=== PATIENT | male | born 1960 | race Caucasian/White ===

== ENCOUNTER 2018-03-07 16:09 | Inpatient (IN) | payer OTHER, SELFPAY ==
[2018-03-07 17:34] LABS: #Eosinphils 0.2 thou/uL (0.0-0.7); #Lymphocytes 1.4 thou/uL (1.20-3.40); #Monocytes 1.2 thou/uL (0.11-0.59); %Basophils 0.2 % (0.0-1.0); %Eosinophils 1.4 % (0.0-10.0); %Lymphocytes 11.5 % (21.0-51.0); %Monocytes 10.5 % (0.0-10.0); %Neutrophils 76.4 % (42.0-75.0); Hemoglobin 15.6 g/dL (14.0-18.0); Mean Corpuscular HGB CONC 36.2 g/dL (32.0-36.0); Platelet Count 308 thou/uL (130-400); RBC Distribution Width 11.2 % (11.5-14.5); Red Blood Cell (RBC) Count 4.73 mill/uL (4.70-6.10); White Blood Cell (WBC) Count 11.7 thou/uL (4.8-10.8)
[2018-03-07 17:57] LABS: ALT (SGPT) 15 U/L (8-55); AST (SGOT) 13 U/L (5-34); Albumin 4.3 g/dL (3.5-5.0); Alkaline Phosphatase 91 U/L (40-150); Anion Gap 18 mmol/L (10-20); BUN (Urea Nitrogen) 13 mg/dL (8.4-25.7); Bilirubin, Total 1.2 mg/dL (0.2-1.2); Calc. Creatinine Clearance 0 mL/min (70-130); Carbon Dioxide 23 mmol/L (22-29); Chloride 97 mmol/L (98-107); Estimated GFR-MDRD 85; Globulin 3.4 g/dL (2.4-3.5); Glucose 320 mg/dL (70-105); Potassium 4.2 mmol/L (3.5-5.1); Protein, Total 7.7 g/dL (6.0-8.3); Sodium 134 mmol/L (136-145)
--- NOTE | 2018-03-07 21:42 | RAD ---
RIGHT FOOT THREE VIEWS: INDICATIONS: History of right foot wound. COMPARISON: None. FINDINGS: There is mild metatarsus primus varus and hallux valgus deformity of the first ray. There is mild gr eat toe MTP osteoarthrosis. There are [place] calcifications seen within the soft tissues of the r ight foot. There is soft tissue gas involving the medial aspects of the great toe, at the level of t he great toe proximal phalanx. There is soft tissue swelling of the great toe. Lisfranc alignment i s preserved. Enthesopathic change is seen in the calcaneus. No radiopaque foreign body is evident. IMPRESSION: 1. Soft tissue gas and soft tissue swelling of the great toe, suspicious for infection or wound. No destructive osteolysis is seen to suggest radiographic evidence of osteomyelitis. 2. Mild great toe metacarpophalangeal osteoarthrosis. POS: KODY
[2018-03-08] MEDS ORDERED: Acetaminophen 325 MG TAB PO PRN ×2 (01:28→08:03)
[2018-03-08] MEDS ORDERED: Ondansetron HCl/PF 4 MG/2 ML Vial IVP PRN ×3 (01:28→11:47)
[2018-03-08] MEDS ORDERED: Ondansetron ODT 4 MG TAB SL PRN (01:28)
[2018-03-08 01:29] VITALS: BMI 27.6
[2018-03-08] MEDS ORDERED: Dextrose 5% in Water 1,000 ML IV PRN ×2 (05:14→08:03)
[2018-03-08] MEDS ORDERED: Insulin Regular 300 UNITS/3 ML VIAL SC PRN ×2 (05:14)
[2018-03-08] MEDS ORDERED: Dextrose 50% Abboject 50 ML SYRINGE IVP PRN (05:14)
[2018-03-08] MEDS: Piperacillin/Tazobactam 3.375 GM in Sodium Chloride 0.9% 100 ML IVPB SCH ×3 (05:52→17:08)
[2018-03-08] MEDS: Vancomycin HCl 1.5 GM in Sodium Chloride 0.9% 250 ML 300 ML IVPB SCH ×2 (05:52→17:55)
[2018-03-08] MEDS ORDERED: Loratadine 10 MG TAB PO PRN (08:03)
[2018-03-08] MEDS ORDERED: hydrALAZINE 20 MG/ML VIAL SLOW IVP PRN (08:03)
[2018-03-08] MEDS ORDERED: Mag-Al 1200 mg/1200 mg/30 ML UDCUP PO PRN (08:03)
[2018-03-08] MEDS ORDERED: Temazepam 15 MG CAP PO PRN (08:03)
[2018-03-08] MEDS ORDERED: Eucerin (Mineral Oil/Petrolatum,White) 30 gm Jar TOP PRN (08:03)
[2018-03-08] MEDS ORDERED: Artificial Tears 18 DROP/0.9 ML EA EYE PRN (08:03)
[2018-03-08] MEDS ORDERED: Milk Of Magnesia 30 ML UDCUP PO PRN (08:03)
[2018-03-08] MEDS ORDERED: Diabetic Tussin 200 MG/10 ML UDCUP PO PRN (08:03)
[2018-03-08] MEDS ORDERED: Sodium Chloride 0.65% Nasal 44 ML BOT EA NARE PRN (08:03)
[2018-03-08] MEDS ORDERED: Senokot 8.6 MG TAB PO PRN (08:03)
[2018-03-08] MEDS ORDERED: HYDROcodone/Acetaminophen 5/325 mg Tablet PO PRN ×2 (08:03)
[2018-03-08] MEDS ORDERED: Ondansetron ODT 4 MG TAB PO PRN (08:03)
[2018-03-08] MEDS ORDERED: Chloraseptic Spray 180 ml Bottle PO PRN (08:03)
[2018-03-08] MEDS ORDERED: Morphine 4 MG/ML VIAL IV PRN (08:30)
[2018-03-08] MEDS: Saccharomyces boulardii 250 MG CAP PO SCH (08:31)
[2018-03-08] MEDS: metFORMIN 500 MG TAB PO SCH ×2 (08:31→22:26)
--- NOTE | 2018-03-08 09:24 | CON ---
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 This developed in severe infection, presented to emergency room yesterday jen frances. Finally assigned to a room last night, admitted by Hospitalist Service, started on Zosyn and van comycin. Cultures obtained from the right foot have not been submitted. White count 11. He has sev ere infection in his right foot. X-rays obtained reveal there was gas in the soft tissues, severe ti ssue edema, but no osseous changes. Plan is for incision and drainage, probable amputation of the ri ght great toe, pending operative findings. Wound Care will be available to place a wound VAC. He dugan s a plantar wound that tracks to the dorsum skin at the base of the right great toe in the webspace b etween the great toe and second toe. ALLERGIES: None. TOBACCO: None. ALCOHOL: Socially, rarely. MEDICATIONS: Vancomycin, Zosyn in the hospital, metformin 500 b.i.d. at home. PAST SURGICAL HISTORY: Noncontributory. PAST MEDICAL HISTORY: Xte-[id number] diabetes mellitus. REVIEW OF SYSTEMS: [place] noncontributory. He is due for colonoscopy soon, has not had one scree veena in the past. FAMILY HISTORY: Noncontributory. REVIEW OF SYSTEMS: Noncontributory. PHYSICAL EXAMINATION: VITAL SIGNS: Height 6 foot, 203 pounds, 27 BMI, 98.4, 73, 137/74. HEENT: Unremarkable. LUNGS: Clear to auscultation. CARDIAC: Regular rate and rhythm without murmur or gallop. ABDOMEN: Soft, nontender. EXTREMITIES: Unremarkable. Palpable pulses. Right foot reveals severe cellulitis over the dorsum o f the right foot extending from the right great toe with severe cellulitis infection of the right gre at toe with plantar ulceration wound tracking to the dorsum of the skin in the webspace between the g reat toe and the second toe adjacent to the great toe. LABORATORY: White count 11, hemoglobin 15. Basic metabolic profile normal. Glucose 320. ASSESSMENT AND PLAN: Severe diabetic infection, right foot. PLAN: Incision and drainage, possible amputation of the right great toe as indicated. Cultures will be obtained. The patient understands the risks and benefits and consents. Postoperatively he will need a wound VAC with outpatient wound VAC care. Home health nursing versus outpatient [facility] Wound VAC care either locally or [facility] [place] versus [place].
[2018-03-08] MEDS ORDERED: PROPOFOL 200 MG/20 ML VIAL ONE (10:27)
[2018-03-08] MEDS ORDERED: Lidocaine 1% PF 5 ML VIAL ONE (10:27)
[2018-03-08] MEDS ORDERED: Ondansetron HCl/PF 4 MG/2 ML Vial ONE (10:27)
[2018-03-08] MEDS: Famotidine 20 MG TAB PO SCH ×2 (10:46→22:26)
[2018-03-08] MEDS ORDERED: Promethazine HCl 25 MG/ML VIAL IM PRN (11:47)
[2018-03-08] MEDS ORDERED: Promethazine HCl 25 MG/ML VIAL SLOW IVP PRN (11:47)
[2018-03-08] MEDS ORDERED: Ibuprofen 600 MG TAB PO PRN (12:20)
[2018-03-08] MEDS ORDERED: Acetaminophen 500 MG TAB PO PRN (12:20)
[2018-03-08] MEDS ORDERED: traMADol HCl 50 MG TAB PO PRN ×2 (12:20)
--- NOTE | 2018-03-08 12:43 | OP ---
DATE OF PROCEDURE: 03/08/2018 PREOPERATIVE DIAGNOSIS: Severe diabetic infection, right great toe. POSTOPERATIVE DIAGNOSIS: Severe diabetic infection, right great toe. PROCEDURES PERFORMED: Exploration of right great toe, opening the wound and sending cultures and sen sitivity of deep infection to the metatarsal phalangeal joint of the great toe with necrotic tissue r equiring ray amputation of the right great toe and metatarsal. Wound VAC application by Wound Care. SURGEON: Dr. Osman Szymanski ANESTHESIA: General LMA. FINDINGS: Excellent blood supply, cautery necessary for postoperative bleeding on digital arteries. PROCEDURE IN DETAIL: Patient was taken to the operating room where under general LMA anesthesia, rig ht lower extremity was prepared with ChloraPrep, draped in routine fashion. There was a deep infecti on in the webspace between the second and great toe, right foot. Incision carried down unroofing thi s and culture submitted. The infection extended down into the joint and into the surrounding soft ti ssues requiring amputation of the right great toe and metatarsal. This was performed sharply and amp utated with the bone cutters and resected proximally with rongeurs. Connective tissue was debrided. Wound was irrigated. Hemostasis gained with cautery. Wound care applied a wound VAC.
--- NOTE | 2018-03-08 13:48 | HP ---
PRIMARY CARE PHYSICIAN: Dr. Mayank Collins. REASON FOR ADMISSION: Right diabetic foot infection. HISTORY OF PRESENT ILLNESS: A 57-year-old male who was sent by primary care physician to emergency r oom for right foot infection. The patient reports that on last Wednesday, he noticed that he was having pain in his right great toe. Subsequently, it rapidly progressed to the right foot including dorsal aspect. He also noticed purulent drainage from the right great toe. The patient reports that he mi ght have stepped down to nail, but he was not sure. He was having chills last night as well as he st arted having fever. His erythema and swelling over right foot was rapidly progressing and that is wh y he made a followup appointment with primary care physician yesterday who sent him to emergency room and he was admitted to the hospital. The patient's pain is about 5/10 in intensity, which is getting worse with walking. There is no spec ific relieving factor. ALLERGIES: No known drug allergy. CURRENT HOME MEDICATION: Metformin 500 mg p.o. b.i.d. REVIEW OF SYSTEMS: The following complete review of systems was negative, unless otherwise mentioned in the HPI or below: Constitutional: Weight loss or gain, ability to conduct usual activities. Skin: Rash, itching. Eyes: Double vision, pain. ENT/Mouth: Nose bleeding, neck stiffness, pain, tenderness. Cardiovascular: Palpitations, dyspnea on exertion, orthopnea. Respiratory: Shortness of breath, wheezing, cough, hemoptysis, fever or night sweats. Gastrointestinal: Poor appetite, abdominal pain, heartburn, nausea, vomiting, constipation, or diarr hea. Genitourinary: Urgency, frequency, dysuria, nocturia. Musculoskeletal: Pain, swelling. Neurologic/Psychiatric: Anxiety, depression. Allergy/Immunologic: Skin rash, bleeding tendency. Please see my HPI for pertinent positive and negative. All other review of systems reviewed and nega tive except as mentioned in the HPI. PAST MEDICAL HISTORY: Diabetes type 2. PAST SURGICAL HISTORY: Reviewed and negative. PAST PSYCHIATRIC HISTORY: Reviewed and negative. SOCIAL HISTORY: Patient lives at home. 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 No history of tobacco, alcohol or illicit drug abuse. FAMILY HISTORY: No strong family history of coronary artery disease, stroke or cancer, diabetes to h is mother. EMERGENCY ROOM COURSE: Patient is given vancomycin and Zosyn. PHYSICAL EXAMINATION: VITAL SIGNS: On arrival, blood pressure 152/84, pulse 100, respiratory rate 20, temperature 98.0, sa turation 96% on room air, T-maximum 100.2 in the ER. Weight 94.8 kilograms. GENERAL: Patient is currently alert, awake, no obvious acute distress. HEAD: Normocephalic, atraumatic. EYES: Pupils round, reactive to light. Extraocular muscle intact. ENT: Oropharynx within normal limits. Moist mucous membranes. No oral lesion, no pharyngeal erythe ma, no exudate. NECK: Supple, no JVD, no thyromegaly, no carotid bruit, no jugular venous distention. LUNGS: Clear to auscultation without any rhonchi or rales. CARDIAC: S1, S2 regular. No murmur, no gallop, no rub. ABDOMEN: Soft, bowel sounds present, nontender, nondistended. No organomegaly, no mass, no suprapub ic tenderness. BACK: Unremarkable, no CVA tenderness. EXTREMITIES: Upper extremity passive movements of all joints are normal. Lower extremity, right gre at toe is swollen, erythematous, and purulent drainage noted from the bottom. The patient also has d orsal aspect of erythema and tenderness over right foot. Left foot is within normal limit. SKIN: No skin rash other than cellulitis picture on the right foot. NEUROLOGIC: Nonfocal examination. Speech normal. IMAGING DATA AND SIGNIFICANT LABORATORY DATA: X-ray of the foot showing soft tissue gas and soft tis sandra swelling of the great toe, metacarpophalangeal osteoarthrosis. CBC: WBC 11.7, hemoglobin 15.6, platelets 308 with left shift. BMP: Sodium 134, potassium 4.2, chloride 97, carbon dioxide 23, anio n gap 18, BUN 13, creatinine 0.92. Glucose 320, calcium 10.0. Lactic acid 1.2. LFT: AST 13, ALT 1 5, alkaline phosphatase 91, albumin 4.3. ASSESSMENT AND PLAN/IMPRESSION: 1. Sepsis due to diabetic foot infection with soft tissue infection. The patient is on broad spectr um antibiotic therapy with vancomycin and Zosyn. We will follow up on culture result and change anti biotic therapy accordingly. 2. Diabetic foot infection on the right with a right great toe cellulitis and abscess. The patient does have purulent drainage. He meets sepsis criteria. He has rapidly worsening of infection. We w ill consult General Surgery because patient will need surgical evaluation. This patient will need am putation of right great toe. After amputation, patient will need wound VAC and wound care, pain cont rol with morphine p.r.n. basis. We will control diabetes very well. The patient will require hospit alization and we will follow up on culture result. We will continue with broad spectrum antibiotic t herapy. 3. Diabetes type 2, not well controlled. We will continue with metformin 500 mg p.o. b.i.d. We andria l check hemoglobin A1c. We will also consider adding glyburide upon discharge. We will continue wit h insulin as per sliding scale protocol. Diabetic diet will be given. 4. Hypertension without any previous history of hypertension. We will monitor patient's blood press ure while in hospital. Upon discharge, we will consider adding lisinopril. 5. Deep venous thrombosis prophylaxis, Lovenox 40 mg subcu daily. 6. Gastrointestinal prophylaxis, Pepcid 20 mg p.o. b.i.d. 7. Code status: The patient is FULL CODE. Patient does not have any surrogate decision maker. Disposition plan based on clinical course. We are expecting patient's stay in hospital more than 2 m idnights. Plan of care discussed with the patient in detail.
[2018-03-08 20:41] LABS: Bilirubin Negative (Negative); Blood, Urine Negative (Negative); Clarity CLEAR (Clear); Glucose, Urine (Dipstick) 500 mg/dL (Negative); Leukocyte Negative (Negative); Nitrite Negative (Negative); Protein, Urine (Dipstick) Negative (Neg-Trace); Specific Gravity, Urine 1.022 (1.002-1.036)
[2018-03-08 20:43] LABS: Bacteria/HPF None Seen HPF (None Seen); Hyaline Casts/LPF 0-3 HYALINE CAST LPF (0-3 Hyaline); Pathc Cast-AUWi Flag 0.14 (0-2.49); RBC/HPF 0-3 HPF (0-3); Squamous Epithelial 0-3 HPF (0-3); WBC/HPF 0-3 HPF (0-3)
[2018-03-09] MEDS: Piperacillin/Tazobactam 3.375 GM in Sodium Chloride 0.9% 100 ML IVPB SCH ×5 (00:25→23:33)
[2018-03-09 05:19] LABS: Hemoglobin A1c 9.9 % (4.0-6.0)
[2018-03-09 05:28] LABS: Anion Gap 14 mmol/L (10-20); BUN (Urea Nitrogen) 13 mg/dL (8.4-25.7); CRP (Inflammatory) 10.75 mg/dL (= or < 0.5); Calc. Creatinine Clearance 127 mL/min (70-130); Calcium 8.8 mg/dL (7.8-10.44); Carbon Dioxide 26 mmol/L (22-29); Chloride 102 mmol/L (98-107); Estimated GFR-MDRD Greater than 90; Glucose 284 mg/dL (70-105); Sodium 138 mmol/L (136-145)
[2018-03-09 05:34] LABS: #Basophils 0.1 thou/uL (0.0-0.2); #Eosinphils 0.2 thou/uL (0.0-0.7); #Lymphocytes 1.9 thou/uL (1.20-3.40); #Monocytes 1.4 thou/uL (0.11-0.59); %Basophils 0.5 % (0.0-1.0); %Eosinophils 1.7 % (0.0-10.0); %Lymphocytes 18.4 % (21.0-51.0); %Monocytes 12.9 % (0.0-10.0); %Neutrophils 66.5 % (42.0-75.0); Hemoglobin 12.4 g/dL (14.0-18.0); Mean Corpuscular HGB CONC 35.1 g/dL (32.0-36.0); Mean Corpuscular Hemoglobin 32.5 pg (27.0-31.0); Mean Corpuscular Volume 92.6 fL (78.0-98.0); Mean Platelet Volume 6.7 fL (7.4-10.4); Platelet Count 276 thou/uL (130-400); Red Blood Cell (RBC) Count 3.82 mill/uL (4.70-6.10); White Blood Cell (WBC) Count 10.5 thou/uL (4.8-10.8)
[2018-03-09] MEDS: Vancomycin HCl 1.5 GM in Sodium Chloride 0.9% 250 ML 300 ML IVPB SCH ×2 (07:08→20:42)
[2018-03-09] MEDS: metFORMIN 500 MG TAB PO SCH ×2 (08:37→20:40)
[2018-03-09] MEDS: Saccharomyces boulardii 250 MG CAP PO SCH (08:37)
[2018-03-09] MEDS: Famotidine 20 MG TAB PO SCH ×2 (08:37→20:40)
[2018-03-09] MEDS: Enoxaparin Sodium 40 MG/0.4 ML SYRINGE SC SCH (08:37)
[2018-03-09] MEDS: Lisinopril 5 MG TAB PO SCH (08:37)
[2018-03-09] MEDS: glyBURIDE 2.5 MG TAB PO SCH ×2 (09:04→20:41)
[2018-03-09] MEDS: Insulin Regular 300 UNITS/3 ML VIAL SC PRN (11:18)
--- NOTE | 2018-03-09 12:54 | PDOC.PN ---
- Subjective Encounter Start Date: 03/09/18 Encounter Start Time: 10:45 -: old records requested/rev Patient seen and examined. No new complaints. No overnight events - Objective Resuscitation Status: Resuscitation Status FULL:Full Resuscitation MAR Reviewed: Yes Vital Signs & Weight: Vital Signs (12 hours) Temp Pulse Resp BP Pulse Ox 03/09/18 08:37 68 03/09/18 08:00 97.6 F 68 18 96 03/09/18 07:38 98.5 F 68 18 157/81 H 95 03/09/18 04:00 98.1 F 73 20 143/80 H Weight Admit Weight 203 lb 4.8 oz Weight 203 lb 4.8 oz I&O: 03/08/18 03/09/18 03/10/18 06:59 06:59 06:59 Intake Total 360 360 710 Output Total 700 700 Balance 360 -340 10 Result Diagrams: 03/09/18 04:20 03/09/18 04:20 Additional Labs: Accuchecks 03/09/18 03/09/18 03/08/18 11:15 05:06 20:51 POC Glucose 253 H 256 H 297 H 03/08/18 03/08/18 16:48 10:30 POC Glucose 223 H 251 H Phys Exam - Physical Examination Constitutional: NAD HEENT: PERRLA, moist MMs, sclera anicteric Neck: no JVD, supple Respiratory: no wheezing, no rales, no rhonchi Cardiovascular: RRR, no significant murmur, no rub Gastrointestinal: soft, non-tender, no distention, positive bowel sounds Musculoskeletal: no edema, pulses present right foot with dressing, wound vac in place Neurological: non-focal, normal sensation, moves all 4 limbs Psychiatric: normal affect, A&O x 3 Skin: no rash, normal turgor Dx/Plan (1) Cellulitis of right foot Code(s): L03.115 - CELLULITIS OF RIGHT LOWER LIMB Status: Acute (2) Cellulitis of toe of right foot Code(s): L03.031 - CELLULITIS OF RIGHT TOE Status: Acute (3) Diabetic foot infection Code(s): E11.628 - TYPE 2 DIABETES MELLITUS WITH OTHER SKIN COMPLICATIONS; L08.9 - LOCAL INFECTION OF THE SKIN AND SUBCUTANEOUS TISSUE, UNSP Status: Acute (4) Hypertension Code(s): I10 - ESSENTIAL (PRIMARY) HYPERTENSION Status: Acute (5) Sepsis Code(s): A41.9 - SEPSIS, UNSPECIFIED ORGANISM Status: Acute (6) Diabetes type 2, uncontrolled Code(s): E11.65 - TYPE 2 DIABETES MELLITUS WITH HYPERGLYCEMIA Status: Chronic - Plan cont current plan of care, plan discussed w/ family, 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 Review of Systems - Review of Systems Constitutional: negative: fever, chills, sweats, weakness, malaise, other Eyes: negative: Pain, Vision Change, Conjunctivae Inflammation, Eyelid Inflammation, Redness, Other ENT: negative: Ear Pain, Ear Discharge, Nose Pain, Nose Discharge, Nose Congestion, Mouth Pain, Mouth Swelling, Throat Pain, Throat Swelling, Other Respiratory: negative: Cough, Dry, Shortness of Breath, Hemoptysis, SOB with Excertion, Pleuritic Pain, Sputum, Wheezing Cardiovascular: negative: chest pain, palpitations, orthopnea, paroxysmal nocturnal dyspnea, edema, light headedness, other Gastrointestinal: negative: Nausea, Vomiting, Abdominal Pain, Diarrhea, Constipation, Melena, Hematochezia, Other Genitourinary: negative: Dysuria, Frequency, Incontinence, Hematuria, Retention , Other Musculoskeletal: Foot Pain. negative: Neck Pain, Shoulder Pain, Arm Pain, Back Pain, Hand Pain, Leg Pain, Other - Medications/Allergies Allergies/Adverse Reactions: Allergies Allergy/AdvReac Type Severity Reaction Status Date / Time No Known Drug Allergies Allergy Verified 03/08/18 01:32 Medications: Current Medications Acetaminophen (Tylenol) 650 mg PO Q4H PRN PRN Reason: Headache/Fever or Mild Pain Acetaminophen (Tylenol) 1,000 mg PO Q6H PRN PRN Reason: Moderate to Severe Pain (6-10) Hydrocodone Bitart/Acetaminophen ([place] 5/325) 1 tab PO Q4H PRN PRN Reason: Moderate Pain (4-6) Hydrocodone Bitart/Acetaminophen ([place] 5/325) 2 tab PO Q4H PRN PRN Reason: Severe Pain (7-10) Al Hydroxide/Mg Hydroxide (Maalox) 15 ml PO Q4H PRN PRN Reason: Heartburn or Indigestion Artificial Tears (Tears Naturale) 0 drop EA EYE PRN PRN PRN Reason: Dry Eyes Dextrose/Water (Dextrose 50%) 25 gm IVP PRN PRN PRN Reason: HYPOGLYCEMIA PROTOCOL Enoxaparin Sodium (Lovenox) 40 mg SC 0900 [facility] Last Admin: 03/09/18 08:37 Dose: 40 mg Famotidine (Pepcid) 20 mg PO BID [facility] Last Admin: 03/09/18 08:37 Dose: 20 mg Glucagon (Glucagon) 1 mg IM PRN PRN PRN Reason: HYPOGLYCEMIA PROTOCOL Glyburide (Micronase) 2.5 mg PO BID [facility] Last Admin: 03/09/18 09:04 Dose: 2.5 mg Guaifenesin (Robitussin Sf) 200 mg PO Q4H PRN PRN Reason: Cough Hydralazine HCl (Apresoline) 10 mg SLOW IVP Q4H PRN PRN Reason: Systolic BP > 180 Piperacillin Sod/Tazobactam (Sod 3.375 gm/ Sodium Chloride) 100 mls @ 200 mls/ hr IVPB 0530,1130,1730,2330 [facility] Last Admin: 03/09/18 11:16 Dose: 100 mls Vancomycin HCl 1.5 gm/ Sodium (Chloride) 300 mls @ 200 mls/hr IVPB 0600,1800 [facility] Last Admin: 03/09/18 07:08 Dose: 300 mls Dextrose/Water (D5w) 1,000 mls @ 0 mls/hr IV .Q0M PRN PRN Reason: Hypoglycemia Ibuprofen (Motrin) 600 mg PO Q6H PRN PRN Reason: Pain 6-10 ALTERNATE WITH APAP Insulin Human Regular (Humulin R) 0 units SC .BEDTIME SLIDING SC PRN; Protocol PRN Reason: BEDTIME SLIDING SCALE Insulin Human Regular (Humulin R) 0 units SC .AGGRESSIVE SLIDING PRN PRN Reason: Aggressive Sliding Scale Last Admin: 03/09/18 11:18 Dose: 9 unit Lisinopril (Zestril) 5 mg PO DAILY [facility] Last Admin: 03/09/18 08:37 Dose: 5 mg Loperamide HCl (Imodium) 2 mg PO PRN PRN PRN Reason: Diarrhea/Loose Stools Loratadine (Claritin) 10 mg PO DAILYPRN PRN PRN Reason: Sinus Symptoms Magnesium Hydroxide (Milk Of Magnesium) 30 ml PO DAILYPRN PRN PRN Reason: Constipation Metformin HCl (Glucophage) 500 mg PO BID [facility] Last Admin: 03/09/18 08:37 Dose: 500 mg Mineral Oil/White Petrolatum (Eucerin Cream) 0 gm TOP BIDPRN PRN PRN Reason: Dry Skin Morphine Sulfate (Morphine) 4 mg IV Q4H PRN PRN Reason: Severe Pain (7-10) Last Admin: 03/08/18 16:12 Dose: 4 mg Ondansetron HCl (Zofran Odt) 4 mg PO Q6H PRN PRN Reason: Nausea/Vomiting Ondansetron HCl (Zofran) 4 mg IVP Q6H PRN PRN Reason: Nausea/Vomiting Phenol (Chloraseptic [place] 180 Ml Bot) 0 ml PO PRN PRN PRN Reason: Sore Throat Saccharomyces Boulardii (Florastor) 250 mg PO DAILY [facility] Last Admin: 03/09/18 08:37 Dose: 250 mg Senna (Senokot) 2 tab PO HSPRN PRN PRN Reason: Constipation Sodium Chloride ([place]win Nasal [place] 0.65%) 0 ml EA NARE QIDPRN PRN PRN Reason: Nasal Congestion Sodium Chloride (Flush - Normal Saline) 10 ml IVF Q12HR [facility] Last Admin: 03/09/18 08:39 Dose: 10 ml Sodium Chloride (Flush - Normal Saline) 10 ml IVF PRN PRN PRN Reason: Saline Flush Temazepam (Restoril) 15 mg PO HSPRN PRN PRN Reason: Insomnia Tramadol HCl (Ultram) 50 mg PO Q6H PRN PRN Reason: Pain 1-5
--- NOTE | 2018-03-09 16:55 | PRG ---
DATE OF SERVICE: 03/09/2018 Tod Serrano is doing well after amputation of his toes. His pain is under good control. He has a w ound VAC. I anticipate he will be discharged home later this week with home wound VAC. Awaiting wou nd VAC approval. Awaiting cultures. Continue IV antibiotics. Dr. Christian will be covering tomorrow . Call him if necessary. Otherwise, I will see his wound on Wednesday.
[2018-03-09 17:33] LABS: Vancomycin, Trough 8.9 ug/mL
[2018-03-09] MEDS ORDERED: Vancomycin HCl 1.5 GM in Sodium Chloride 0.9% 250 ML 300 ML IVPB SCH (20:00)
[2018-03-10] MEDS: Vancomycin HCl 1.5 GM in Sodium Chloride 0.9% 250 ML 300 ML IVPB SCH ×2 (02:16→10:34)
[2018-03-10] MEDS: Piperacillin/Tazobactam 3.375 GM in Sodium Chloride 0.9% 100 ML IVPB SCH ×3 (05:28→19:54)
[2018-03-10] MEDS: glyBURIDE 2.5 MG TAB PO SCH ×2 (08:33→20:37)
[2018-03-10] MEDS: Saccharomyces boulardii 250 MG CAP PO SCH (08:33)
[2018-03-10] MEDS: Lisinopril 5 MG TAB PO SCH (08:33)
[2018-03-10] MEDS: Enoxaparin Sodium 40 MG/0.4 ML SYRINGE SC SCH (08:33)
[2018-03-10] MEDS: Famotidine 20 MG TAB PO SCH ×2 (08:33→20:37)
[2018-03-10] MEDS: metFORMIN 500 MG TAB PO SCH ×2 (08:33→16:41)
[2018-03-10] MEDS: Loperamide HCl 2 MG CAP PO PRN ×2 (11:20→14:37)
--- NOTE | 2018-03-10 12:06 | PDOC.PN ---
- Subjective Encounter Start Date: 03/10/18 Encounter Start Time: 08:30 Patient seen and examined. No new complaints. No overnight events - Objective Resuscitation Status: Resuscitation Status FULL:Full Resuscitation MAR Reviewed: Yes Vital Signs & Weight: Vital Signs (12 hours) Temp Pulse Resp BP Pulse Ox 03/10/18 08:33 68 03/10/18 08:00 97.8 F 68 18 153/72 H 96 Weight Admit Weight 203 lb 4.8 oz Weight 203 lb 4.8 oz I&O: 03/09/18 03/10/18 03/11/18 06:59 06:59 06:59 Intake Total 360 3130 360 Output Total 700 1800 Balance -340 1330 360 Result Diagrams: 03/09/18 04:20 03/09/18 04:20 Additional Labs: Accuchecks 03/10/18 03/09/18 03/09/18 04:56 23:32 20:39 POC Glucose 162 H 211 H 114 H 03/09/18 16:52 POC Glucose 148 H Phys Exam - Physical Examination Constitutional: NAD HEENT: PERRLA, moist MMs, sclera anicteric Neck: no JVD, supple Respiratory: no wheezing, no rales, no rhonchi Cardiovascular: RRR, no significant murmur, no rub Gastrointestinal: soft, non-tender, no distention, positive bowel sounds Musculoskeletal: no edema, pulses present right foot with wound vac and dressing in place Neurological: non-focal, normal sensation, moves all 4 limbs Lymphatic: no nodes Psychiatric: normal affect, A&O x 3 Skin: no rash, normal turgor Dx/Plan (1) Cellulitis of right foot Code(s): L03.115 - CELLULITIS OF RIGHT LOWER LIMB Status: Acute (2) Cellulitis of toe of right foot Code(s): L03.031 - CELLULITIS OF RIGHT TOE Status: Acute (3) Diabetic foot infection Code(s): E11.628 - TYPE 2 DIABETES MELLITUS WITH OTHER SKIN COMPLICATIONS; L08.9 - LOCAL INFECTION OF THE SKIN AND SUBCUTANEOUS TISSUE, UNSP Status: Acute (4) Hypertension Code(s): I10 - ESSENTIAL (PRIMARY) HYPERTENSION Status: Acute (5) Sepsis Code(s): A41.9 - SEPSIS, UNSPECIFIED ORGANISM Status: Acute (6) Diabetes type 2, uncontrolled Code(s): E11.65 - TYPE 2 DIABETES MELLITUS WITH HYPERGLYCEMIA Status: Chronic - Plan cont current plan of care, continue antibiotics * medication reviewed as below * symptomatic treatment * will consult ID to decide about oral vs IV antibiotics on discharge * follow culture result * pain controlled * wound care * dr addison will evaluate wound tomorrow. Review of Systems - Review of Systems ENT: negative: Ear Pain, Ear Discharge, Nose Pain, Nose Discharge, Nose Congestion, Mouth Pain, Mouth Swelling, Throat Pain, Throat Swelling, Other Respiratory: negative: Cough, Dry, Shortness of Breath, Hemoptysis, SOB with Excertion, Pleuritic Pain, Sputum, Wheezing Cardiovascular: negative: chest pain, palpitations, orthopnea, paroxysmal nocturnal dyspnea, edema, light headedness, other Gastrointestinal: negative: Nausea, Vomiting, Abdominal Pain, Diarrhea, Constipation, Melena, Hematochezia, Other Genitourinary: negative: Dysuria, Frequency, Incontinence, Hematuria, Retention , Other Musculoskeletal: negative: Neck Pain, Shoulder Pain, Arm Pain, Back Pain, Hand Pain, Leg Pain, Foot Pain, Other Skin: negative: Rash, Lesions, Twin, Bruising, Other - Medications/Allergies Allergies/Adverse Reactions: Allergies Allergy/AdvReac Type Severity Reaction Status Date / Time No Known Drug Allergies Allergy Verified 03/08/18 01:32 Medications: Current Medications Acetaminophen (Tylenol) 650 mg PO Q4H PRN PRN Reason: Headache/Fever or Mild Pain Acetaminophen (Tylenol) 1,000 mg PO Q6H PRN PRN Reason: Moderate to Severe Pain (6-10) Hydrocodone Bitart/Acetaminophen ([place] 5/325) 1 tab PO Q4H PRN PRN Reason: Moderate Pain (4-6) Hydrocodone Bitart/Acetaminophen ([place] 5/325) 2 tab PO Q4H PRN PRN Reason: Severe Pain (7-10) Al Hydroxide/Mg Hydroxide (Maalox) 15 ml PO Q4H PRN PRN Reason: Heartburn or Indigestion Artificial Tears (Tears Naturale) 0 drop EA EYE PRN PRN PRN Reason: Dry Eyes Dextrose/Water (Dextrose 50%) 25 gm IVP PRN PRN PRN Reason: HYPOGLYCEMIA PROTOCOL Enoxaparin Sodium (Lovenox) 40 mg SC 0900 [facility] Last Admin: 03/10/18 08:33 Dose: 40 mg Famotidine (Pepcid) 20 mg PO BID [facility] Last Admin: 03/10/18 08:33 Dose: 20 mg Glucagon (Glucagon) 1 mg IM PRN PRN PRN Reason: HYPOGLYCEMIA PROTOCOL Glyburide (Micronase) 2.5 mg PO BID [facility] Last Admin: 03/10/18 08:33 Dose: 2.5 mg Guaifenesin (Robitussin Sf) 200 mg PO Q4H PRN PRN Reason: Cough Hydralazine HCl (Apresoline) 10 mg SLOW IVP Q4H PRN PRN Reason: Systolic BP > 180 Piperacillin Sod/Tazobactam (Sod 3.375 gm/ Sodium Chloride) 100 mls @ 200 mls/ hr IVPB 0530,1130,1730,2330 [facility] Last Admin: 03/10/18 11:21 Dose: 100 mls Dextrose/Water (D5w) 1,000 mls @ 0 mls/hr IV .Q0M PRN PRN Reason: Hypoglycemia Vancomycin HCl 1.5 gm/ Sodium (Chloride) 300 mls @ 200 mls/hr IVPB 0200,1000, 1800 [facility] Last Admin: 03/10/18 10:34 Dose: 300 mls Ibuprofen (Motrin) 600 mg PO Q6H PRN PRN Reason: Pain 6-10 ALTERNATE WITH APAP Insulin Human Regular (Humulin R) 0 units SC .BEDTIME SLIDING SC PRN; Protocol PRN Reason: BEDTIME SLIDING SCALE Insulin Human Regular (Humulin R) 0 units SC .AGGRESSIVE SLIDING PRN PRN Reason: Aggressive Sliding Scale Last Admin: 03/09/18 11:18 Dose: 9 unit Lisinopril (Zestril) 5 mg PO DAILY [facility] Last Admin: 03/10/18 08:33 Dose: 5 mg Loperamide HCl (Imodium) 2 mg PO PRN PRN PRN Reason: Diarrhea/Loose Stools Last Admin: 03/10/18 11:20 Dose: 2 mg Loratadine (Claritin) 10 mg PO DAILYPRN PRN PRN Reason: Sinus Symptoms Magnesium Hydroxide (Milk Of Magnesium) 30 ml PO DAILYPRN PRN PRN Reason: Constipation Metformin HCl (Glucophage) 1,000 mg PO BID-[facility] Last Admin: 03/10/18 08:33 Dose: 1,000 mg Mineral Oil/White Petrolatum (Eucerin Cream) 0 gm TOP BIDPRN PRN PRN Reason: Dry Skin Morphine Sulfate (Morphine) 4 mg IV Q4H PRN PRN Reason: Severe Pain (7-10) Last Admin: 03/08/18 16:12 Dose: 4 mg Ondansetron HCl (Zofran Odt) 4 mg PO Q6H PRN PRN Reason: Nausea/Vomiting Ondansetron HCl (Zofran) 4 mg IVP Q6H PRN PRN Reason: Nausea/Vomiting Phenol (Chloraseptic [place] 180 Ml Bot) 0 ml PO PRN PRN PRN Reason: Sore Throat Saccharomyces Boulardii (Florastor) 250 mg PO DAILY [facility] Last Admin: 03/10/18 08:33 Dose: 250 mg Senna (Senokot) 2 tab PO HSPRN PRN PRN Reason: Constipation Sodium Chloride ([place] Nasal [place] 0.65%) 0 ml EA NARE QIDPRN PRN PRN Reason: Nasal Congestion Sodium Chloride (Flush - Normal Saline) 10 ml IVF Q12HR [facility] Last Admin: 03/10/18 08:40 Dose: 10 ml Sodium Chloride (Flush - Normal Saline) 10 ml IVF PRN PRN PRN Reason: Saline Flush Temazepam (Restoril) 15 mg PO HSPRN PRN PRN Reason: Insomnia Tramadol HCl (Ultram) 50 mg PO Q6H PRN PRN Reason: Pain 1-5
--- NOTE | 2018-03-10 16:20 | CON ---
DATE OF CONSULTATION: 03/10/2018 REASON FOR CONSULTATION: Right hallux osteomyelitis. HISTORY OF PRESENT ILLNESS: A 57-year-old with history of type 2 diabetes with neuropathy who developed inflammatory changes with rapid progression in the right hallux with purulent drainage. This was associated with fever, eventually led to admission. No headaches, visual symptoms, sore throat, odynophagia, dysphagia, no back pain, no dyspnea or cough or sputum production, no abdominal pain or diarrhea. No genitourinary symptoms, no other joint symptoms. PAST MEDICAL HISTORY: Type 2 diabetes. PAST SURGICAL HISTORY: Otherwise negative. 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 Never a smoker. FAMILY HISTORY: Noncontributory. Patient has had amputation of the hallux at the first ray segment. The operative report was reviewed and incision carried out with unroofing of the infection, culture submitted. There is extension of infection into the joint into the surrounding soft tissues, so patient had an amputation and the amputation again was at the ray level. Pathology has been retrieved and it shows inflammatory changes extending to the soft tissue resection margin. PHYSICAL EXAMINATION: VITAL SIGNS: T-max 99.4, blood pressure 150/72, pulse 68, respirations 18, O2 sat 96%. SKIN: Shows the right first MPJ amputation site with fresh looking wound in the photo obtained by Wound Care. The wound now has a negative pressure dressing in place. Patient has a peripheral IV access. No Marin catheter. No lymphadenopathy. HEENT: Ocular movements are conjugate. Sclerae white. Pupils are equal. NECK: Supple, no jugular vein distention. LUNGS: Clear to auscultation and percussion. HEART: S1, S2, regular rate. No S3, S4. ABDOMEN: Soft and not distended or tender. GENITOURINARY: No genital abnormalities. EXTREMITIES: No joint inflammatory activity noted outside the area of involvement. Pulses are 2+ in dorsalis pedis and popliteals. Cognitive function is normal. NEUROLOGIC: Nonfocal. LABORATORY DATA: White cell count 11.7 and 10.5, hemoglobin 12.4, MCV 92, platelets 276 and chemistry was remarkable for hyperglycemia. Hemoglobin A1c 9.9. CRP 10.75. Liver profile normal. Albumin 4.3. Urinalysis was normal. ASSESSMENT: Type 2 diabetes with inflammatory process, right hallux. This developed fairly acutely and does not appear to be associated with a chronic ulcer and there might have been a puncture wound according to the patient. Patient has had a transmetatarsal amputation and there is no pathologic evidence of osteomyelitis and at the margin of amputation, so I would recommend continuation of PO antistaphylococcal and streptococcal regimen guided by the susceptibilities of the Staphylococcus aureus. Hopefully, this will be Keflex 500 four times daily. If MRSA is retrieved, then we will have to adjust regimen accordingly. The duration of therapy will be at least 4 weeks continuation of wound care in view of the adequate blood flow to the area. I predict a proper healing and lesser risk of recrudescence of the infection. MTDD
[2018-03-10 17:28] LABS: Vancomycin, Trough 22.6 ug/mL
[2018-03-10] MEDS: Vancomycin HCl 1.25 GM in Sodium Chloride 0.9% 250 ML 250 ML IVPB SCH (19:28)
[2018-03-11] MEDS: Piperacillin/Tazobactam 3.375 GM in Sodium Chloride 0.9% 100 ML IVPB SCH ×3 (00:06→11:52)
[2018-03-11] MEDS: Vancomycin HCl 1.25 GM in Sodium Chloride 0.9% 250 ML 250 ML IVPB SCH ×2 (01:59→09:43)
[2018-03-11] MEDS: Famotidine 20 MG TAB PO SCH (08:09)
[2018-03-11] MEDS: Lisinopril 5 MG TAB PO SCH (08:09)
[2018-03-11] MEDS: metFORMIN 500 MG TAB PO SCH (08:09)
[2018-03-11] MEDS: glyBURIDE 2.5 MG TAB PO SCH (08:09)
[2018-03-11] MEDS: Saccharomyces boulardii 250 MG CAP PO SCH (08:09)
[2018-03-11] MEDS: Enoxaparin Sodium 40 MG/0.4 ML SYRINGE SC SCH (08:10)
[2018-03-11 12:03] VITALS: BP 127/78; TEMP 98.1
--- NOTE | 2018-03-11 12:09 | PDOC.PN ---
- Subjective Encounter Start Date: 03/11/18 Encounter Start Time: 10:00 Patient seen and examined. No new complaints. No overnight events - Objective Resuscitation Status: Resuscitation Status FULL:Full Resuscitation MAR Reviewed: Yes Vital Signs & Weight: Vital Signs (12 hours) Temp Pulse Resp BP BP Pulse Ox 03/11/18 11:59 98.1 F 70 18 127/78 94 L 03/11/18 08:09 66 155/77 H 03/11/18 08:00 99.0 F 66 20 03/11/18 07:45 99.0 F 66 20 155/77 H 94 L Weight Admit Weight 203 lb 4.8 oz Weight 203 lb 4.8 oz I&O: 03/10/18 03/11/18 03/12/18 06:59 06:59 06:59 Intake Total 3130 600 480 Output Total 1800 Balance 1330 600 480 Result Diagrams: 03/09/18 04:20 03/09/18 04:20 Additional Labs: Accuchecks 03/11/18 03/10/18 03/10/18 04:58 20:25 17:01 POC Glucose 158 H 164 H 211 H 03/10/18 11:07 POC Glucose 243 H Phys Exam - Physical Examination Constitutional: NAD HEENT: PERRLA, moist MMs, sclera anicteric Neck: no JVD, supple Respiratory: no wheezing, no rales, no rhonchi Cardiovascular: RRR, no significant murmur, no rub Gastrointestinal: soft, non-tender, no distention, positive bowel sounds Musculoskeletal: no edema, pulses present Neurological: non-focal, normal sensation, moves all 4 limbs Lymphatic: no nodes Psychiatric: normal affect, A&O x 3 Skin: no rash, normal turgor Dx/Plan (1) Cellulitis of right foot Code(s): L03.115 - CELLULITIS OF RIGHT LOWER LIMB Status: Acute (2) Cellulitis of toe of right foot Code(s): L03.031 - CELLULITIS OF RIGHT TOE Status: Acute (3) Diabetic foot infection Code(s): E11.628 - TYPE 2 DIABETES MELLITUS WITH OTHER SKIN COMPLICATIONS; L08.9 - LOCAL INFECTION OF THE SKIN AND SUBCUTANEOUS TISSUE, UNSP Status: Acute (4) Hypertension Code(s): I10 - ESSENTIAL (PRIMARY) HYPERTENSION Status: Acute (5) Sepsis Code(s): A41.9 - SEPSIS, UNSPECIFIED ORGANISM Status: Acute (6) Diabetes type 2, uncontrolled Code(s): E11.65 - TYPE 2 DIABETES MELLITUS WITH HYPERGLYCEMIA Status: Chronic - Plan cont current plan of care, continue antibiotics * medication reviewed as below * supportive treatment * keflex for 1 month * stable for discharge * see discharge robby. Review of Systems - Review of Systems Eyes: negative: Pain, Vision Change, Conjunctivae Inflammation, Eyelid Inflammation, Redness, Other ENT: negative: Ear Pain, Ear Discharge, Nose Pain, Nose Discharge, Nose Congestion, Mouth Pain, Mouth Swelling, Throat Pain, Throat Swelling, Other Respiratory: negative: Cough, Dry, Shortness of Breath, Hemoptysis, SOB with Excertion, Pleuritic Pain, Sputum, Wheezing Cardiovascular: negative: chest pain, palpitations, orthopnea, paroxysmal nocturnal dyspnea, edema, light headedness, other Gastrointestinal: negative: Nausea, Vomiting, Abdominal Pain, Diarrhea, Constipation, Melena, Hematochezia, Other Genitourinary: negative: Dysuria, Frequency, Incontinence, Hematuria, Retention , Other Musculoskeletal: negative: Neck Pain, Shoulder Pain, Arm Pain, Back Pain, Hand Pain, Leg Pain, Foot Pain, Other Skin: negative: Rash, Lesions, Twin, Bruising, Other - Medications/Allergies Allergies/Adverse Reactions: Allergies Allergy/AdvReac Type Severity Reaction Status Date / Time No Known Drug Allergies Allergy Verified 03/08/18 01:32 Medications: Current Medications Acetaminophen (Tylenol) 650 mg PO Q4H PRN PRN Reason: Headache/Fever or Mild Pain Acetaminophen (Tylenol) 1,000 mg PO Q6H PRN PRN Reason: Moderate to Severe Pain (6-10) Hydrocodone Bitart/Acetaminophen ([place] 5/325) 1 tab PO Q4H PRN PRN Reason: Moderate Pain (4-6) Hydrocodone Bitart/Acetaminophen ([place] 5/325) 2 tab PO Q4H PRN PRN Reason: Severe Pain (7-10) Al Hydroxide/Mg Hydroxide (Maalox) 15 ml PO Q4H PRN PRN Reason: Heartburn or Indigestion Artificial Tears (Tears Naturale) 0 drop EA EYE PRN PRN PRN Reason: Dry Eyes Dextrose/Water (Dextrose 50%) 25 gm IVP PRN PRN PRN Reason: HYPOGLYCEMIA PROTOCOL Enoxaparin Sodium (Lovenox) 40 mg SC 0900 [facility] Last Admin: 03/11/18 08:10 Dose: 40 mg Famotidine (Pepcid) 20 mg PO BID [facility] Last Admin: 03/11/18 08:09 Dose: 20 mg Glucagon (Glucagon) 1 mg IM PRN PRN PRN Reason: HYPOGLYCEMIA PROTOCOL Glyburide (Micronase) 2.5 mg PO BID [facility] Last Admin: 03/11/18 08:09 Dose: 2.5 mg Guaifenesin (Robitussin Sf) 200 mg PO Q4H PRN PRN Reason: Cough Hydralazine HCl (Apresoline) 10 mg SLOW IVP Q4H PRN PRN Reason: Systolic BP > 180 Piperacillin Sod/Tazobactam (Sod 3.375 gm/ Sodium Chloride) 100 mls @ 200 mls/ hr IVPB 0530,1130,1730,2330 [facility] Last Admin: 03/11/18 11:52 Dose: Not Given Dextrose/Water (D5w) 1,000 mls @ 0 mls/hr IV .Q0M PRN PRN Reason: Hypoglycemia Vancomycin HCl 1.25 gm/ Sodium (Chloride) 250 mls @ 166.667 mls/hr IVPB 0200, 1000,1800 [facility] Last Admin: 03/11/18 09:43 Dose: 250 mls Ibuprofen (Motrin) 600 mg PO Q6H PRN PRN Reason: Pain 6-10 ALTERNATE WITH APAP Insulin Human Regular (Humulin R) 0 units SC .BEDTIME SLIDING SC PRN; Protocol PRN Reason: BEDTIME SLIDING SCALE Insulin Human Regular (Humulin R) 0 units SC .AGGRESSIVE SLIDING PRN PRN Reason: Aggressive Sliding Scale Last Admin: 03/09/18 11:18 Dose: 9 unit Lisinopril (Zestril) 5 mg PO DAILY [facility] Last Admin: 03/11/18 08:09 Dose: 5 mg Loperamide HCl (Imodium) 2 mg PO PRN PRN PRN Reason: Diarrhea/Loose Stools Last Admin: 03/10/18 14:37 Dose: 2 mg Loratadine (Claritin) 10 mg PO DAILYPRN PRN PRN Reason: Sinus Symptoms Magnesium Hydroxide (Milk Of Magnesium) 30 ml PO DAILYPRN PRN PRN Reason: Constipation Metformin HCl (Glucophage) 1,000 mg PO BID-[facility] Last Admin: 03/11/18 08:09 Dose: 1,000 mg Mineral Oil/White Petrolatum (Eucerin Cream) 0 gm TOP BIDPRN PRN PRN Reason: Dry Skin Morphine Sulfate (Morphine) 4 mg IV Q4H PRN PRN Reason: Severe Pain (7-10) Last Admin: 03/08/18 16:12 Dose: 4 mg Ondansetron HCl (Zofran Odt) 4 mg PO Q6H PRN PRN Reason: Nausea/Vomiting Ondansetron HCl (Zofran) 4 mg IVP Q6H PRN PRN Reason: Nausea/Vomiting Phenol (Chloraseptic [place] 180 Ml Bot) 0 ml PO PRN PRN PRN Reason: Sore Throat Saccharomyces Boulardii (Florastor) 250 mg PO DAILY [facility] Last Admin: 03/11/18 08:09 Dose: 250 mg Senna (Senokot) 2 tab PO HSPRN PRN PRN Reason: Constipation Sodium Chloride ([place] Nasal [place] 0.65%) 0 ml EA NARE QIDPRN PRN PRN Reason: Nasal Congestion Sodium Chloride (Flush - Normal Saline) 10 ml IVF Q12HR [facility] Last Admin: 03/11/18 08:10 Dose: 10 ml Sodium Chloride (Flush - Normal Saline) 10 ml IVF PRN PRN PRN Reason: Saline Flush Temazepam (Restoril) 15 mg PO HSPRN PRN PRN Reason: Insomnia Tramadol HCl (Ultram) 50 mg PO Q6H PRN PRN Reason: Pain 1-5
[2018-03-11] MEDS: Insulin Regular 300 UNITS/3 ML VIAL SC PRN (12:11)
--- NOTE | 2018-03-11 12:48 | DIS ---
DATE OF ADMISSION: 03/07/2018 DATE OF DISCHARGE: 03/11/2018 PRIMARY CARE PHYSICIAN: Dr. Mayank Collins DISCHARGE DISPOSITION: Home. PRIMARY DISCHARGE DIAGNOSES: Diabetic foot infection, cellulitis of right foot, cellulitis and gangr karoline of right great toe, status post amputation of right great toe, sepsis due to diabetic foot infect ion. SECONDARY DISCHARGE DIAGNOSES: Diabetes type 2, uncontrolled hypertension, new diagnosis. PRIMARY PROCEDURE/OPERATION: Right great toe amputation by Dr. Szymanski. RADIOLOGICAL INVESTIGATION: Foot x-ray. SIGNIFICANT LABORATORIES: WBC 10.5, hemoglobin 12.4, platelet 276, creatinine 0.84. CRP 10.75. Hem oglobin A1c 9.9. LFT normal. Urinalysis normal. Wound culture grew Staph aureus, Streptococcus gra m negative maciel. Blood culture negative. DISCHARGE MEDICATIONS: Keflex 500 mg p.o. q.i.d. for 1 month, Tylenol #3 one or two tablets p.o. q.6 hourly p.r.n., glyburide 2.5 mg p.o. b.i.d., lisinopril 5 mg p.o. daily, metformin 1000 mg p.o. b.i. d., Florastor 250 mg p.o. daily. CONTRAINDICATIONS: None. CODE STATUS: FULL CODE. INPATIENT CONSULTANTS: Dr. Rodriguez and Dr. Szymanski. TEST RESULTS PENDING ON DISCHARGE: None. ALLERGIES: No known drug allergy. DISCHARGE PLAN: Post hospital, patient will follow up with Dr. Mayank Collins, Dr. Szymanski. [facility] has outpatient wound care appointment. HOSPITAL COURSE: A 57-year-old male who has diabetes history, who was unaware of stepping down on so mething and subsequently he had rapid worsening of erythema, swelling of right great toe as well as r ight foot. He started having pus drainage from the right great toe. He went to see his primary care physician who directed him to the ER. He was admitted to medical floor. His foot x-ray showed soft tissue gas. We consulted Dr. Szymanski and he did amputation of great toe. He required wound VAC afte r surgery. [facility] wound VAC was arranged. He was treated with vancomycin and Zosyn. His pain was controlled with pain medications. Dr. Rodriguez recommended Keflex upon discharge for one month. The vt cristiano is instructed to follow with Dr. Rodriguez, Dr. Szymanski as instructed. Outpatient wound care is als o arranged. During this admission for his uncontrolled diabetes, we added glyburide and increase met formin to 1000 mg p.o. b.i.d. For his new diagnosis of hypertension, we started Lisinopril 5 mg p.o. daily. Dietary education given, wound care advised diabetic foot was arranged. The patient is seen and examined at bedside today. Please see my progress note from today for furthe r detail. The patient is medically stable for discharge. All consultants cleared him for discharge as well.
--- NOTE | 2018-03-11 16:13 | PRG ---
DATE OF SERVICE: 03/11/2018 SUBJECTIVE: Tod Serrano is doing well. He had bleeding is his wound, requiring Prevena wound VAC a pplication. OBJECTIVE: VITAL SIGNS: 99.1 degrees, 127/78. Cultures revealed Staph strep and gram negative rods. Dr. Rodriguez has been consulted. Overall, the pa tient is doing well. I expect this wound to heal without problems. I would recommend discharge home on oral antibiotics. He can follow up in my office in 2-3 weeks, so I can see him in wound care. Please call if necessary. Otherwise, I will see him as needed.
== END 2018-03-11 15:42 | disposition home or self-care (01) | DRG 854 ==
LOC: ERS 16:09 → T4-B 22:13
PROVIDERS: ADMIT Hospitalist; ATTEND Hospitalist
PROC: 0Y6M0Z9 Detachment at Right Foot, Partial 1st Ray, Open Approach (ICD-10-PCS; principal; 2018-03-08)
DX: A41.9 Sepsis, unspecified organism (principal); L02.611 Cutaneous abscess of right foot; E11.52 Type 2 diabetes mellitus with diabetic peripheral angiopathy with gangrene; I96 Gangrene, not elsewhere classified; L03.031 Cellulitis of right toe; E11.628 Type 2 diabetes mellitus with other skin complications; Z79.84 Long term (current) use of oral hypoglycemic drugs; I10 Essential (primary) hypertension; B95.5 Unspecified streptococcus as the cause of diseases classified elsewhere
CPT/HCPCS: 36415; 36416; 80048; 80053; 80202; 81001; 83036; 83605; 85025; 86140; 87040; 87070; 87077; 87186; 87205; 88305; 93005; 93010; 96365; 96367; A4216; G8978-GP-CH; G8979-GP-CH; G8980-GP-CH; J1650; J2001; J2270; J2405; J2543; J2704; J3370; J7050

== ENCOUNTER 2018-03-25 09:22 | Outpatient (CLI) | payer SELFPAY ==
--- NOTE | 2018-03-25 12:29 | PRG ---
DATE OF SERVICE: 03/25/2018 CHIEF COMPLAINT: Toe amputation. HISTORY OF PRESENT ILLNESS: This is a 57-year-old male who presents today status post right great to e amputation performed on 03/06/2018. He says he is uncertain how it began. He thinks it possibly s tarted by stepping on a thorn or he may have had an ulcer under the toe, but he is uncertain. He has been getting 3 times a week wound VAC changes since the amputation and denies any nausea, vomiting, fevers or chills at this time. Past medical history, past surgical history, medications, allergies, social history and family histor y are documented in his paper chart in the [facility]. These were reviewed and deemed accurat e. REVIEW OF SYSTEMS: Constitutional: Denies nausea, vomiting, fevers or chills. Integumentary: Rela batsheva open wound. Musculoskeletal: Relates amputation of the toe. PHYSICAL EXAMINATION: VITAL SIGNS: Temperature 98.2, pulse 73, respirations 21, blood pressure 157/81, blood sugar 148. CARDIOVASCULAR: Dorsalis pedis and posterior tibial pulses are palpable to the right foot. Immediat e capillary fill time to the remaining toes. INTEGUMENTARY: There is an open wound measuring 6 cm x 2.3 cm x 4 cm at the right great toe amputati on site. There is no bone or tendon present within the wound. It is 100% granulation tissue. No pu rulent drainage, no periwound erythema, edema or warmth. ASSESSMENT: 1. 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 2. Diabetes with peripheral neuropathy. PLAN: 1. Full thickness debridement of the subcutaneous tissue layer removing all nonviable tissue and bio film from the wound base down to bleeding granular wound base. The patient tolerated the procedure w ell. 2. We will continue with 3 times a week wound VAC changes at 125 mmHg and follow up with me in 1 wee k or sooner should he have any problems before that time.
== END 2018-03-25 09:23 | disposition home or self-care (01) ==
LOC: WCC 09:22
PROVIDERS: ATTEND Podiatrist Foot & Ankle Surgery
DX: E11.621 Type 2 diabetes mellitus with foot ulcer (principal); L97.519 Non-pressure chronic ulcer of other part of right foot with unspecified severity; E11.42 Type 2 diabetes mellitus with diabetic polyneuropathy
CPT/HCPCS: 11042; 36416; 99203; G0463

== ENCOUNTER 2018-03-30 13:45 | Outpatient (CLI) | payer SELFPAY ==
--- NOTE | 2018-03-30 14:22 | PRG ---
DATE OF SERVICE: 03/30/2018 SUBJECTIVE: Mr. Serrano was seen in [facility]. He has had amputation of his right great toe . The wound is healing, looks very good. Wound VAC will be continued. I will see the wound in anot her 2 weeks. Hopefully, the wound VAC can be discontinued at that time.
== END 2018-03-30 13:46 | disposition home or self-care (01) ==
LOC: WCC 13:45
PROVIDERS: ATTEND Podiatrist Foot & Ankle Surgery
DX: T81.89XD Other complications of procedures, not elsewhere classified, subsequent encounter (principal); Z89.411 Acquired absence of right great toe
CPT/HCPCS: 36416

== ENCOUNTER 2018-04-01 09:44 | Outpatient (CLI) | payer SELFPAY ==
--- NOTE | 2018-04-01 10:35 | PRG ---
DATE OF SERVICE: 04/01/2018 SUBJECTIVE: This is a 57-year-old male returns today for follow up on wound to the right foot, statu s post great toe amputation. The patient has been getting 3 times a week wound VAC dressing changes and has had no problems with this. Denies any acute events since last visit. Denies any nausea, vom iting, fevers or chills. PHYSICAL EXAMINATION: Ulcer to the right great toe amputation site measuring 4.8 cm x 1.5 cm x 2.4 c m of depth. It has 100% granular wound base. No odor. Some mild periwound maceration. No periwoun d erythema, edema or warmth. 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 PLAN: 1. Full thickness debridement of subcutaneous tissue removing all nonviable tissue and biofilm from the wound base with dermal curet. The patient tolerated the procedure well. 2. We are going to continue with 3 times a week wound VAC dressing changes. Wednesday is a holiday so he will return on Wednesday for VAC change and follow up with me on Wednesday. He will call us if he dugan s any complications before that time.
== END 2018-04-01 09:45 | disposition home or self-care (01) ==
LOC: WCC 09:44
PROVIDERS: ATTEND Podiatrist Foot & Ankle Surgery
DX: L97.519 Non-pressure chronic ulcer of other part of right foot with unspecified severity (principal); Z89.411 Acquired absence of right great toe

== ENCOUNTER 2018-04-06 11:07 | Outpatient (CLI) | payer SELFPAY | END 2018-04-06 11:08 | disposition home or self-care (01) | LOC: WCC 11:07 | PROVIDERS: ATTEND Podiatrist Foot & Ankle Surgery | DX: L97.519 Non-pressure chronic ulcer of other part of right foot with unspecified severity (principal); Z89.411 Acquired absence of right great toe | CPT/HCPCS: 97605 ==

== ENCOUNTER 2018-04-08 10:01 | Outpatient (CLI) | payer SELFPAY ==
--- NOTE | 2018-04-08 10:35 | PRG ---
DATE OF SERVICE: 04/08/2018 SUBJECTIVE: A 57-year-old male returns today for followup on right great toe amputation site and has had no problems with wound VAC over the last week. No acute events. Denies nausea, vomiting, fever s or chills. PHYSICAL EXAMINATION: Ulceration of the right great toe amputation site measuring 4.4 cm x 1.7 cm x 2.9 cm, 100% granular wound base, does not probe to tendon or bone. No periwound erythema, edema or warmth. ASSESSMENT: Non-pressure chronic ulceration of the right great toe amputation. Continued good impro vement with wound VAC. PLAN: Reapplied wound VAC today. We will continue with 125 mm of negative pressure change 3 times a week. The patient will follow up with me in 1 week.
== END 2018-04-08 10:02 | disposition home or self-care (01) ==
LOC: WCC 10:01
PROVIDERS: ATTEND Podiatrist Foot & Ankle Surgery
DX: T87.89 Other complications of amputation stump (principal); L97.519 Non-pressure chronic ulcer of other part of right foot with unspecified severity

== ENCOUNTER 2018-04-11 15:02 | Outpatient (CLI) | payer SELFPAY | END 2018-04-11 15:03 | disposition home or self-care (01) | LOC: WCC 15:02 | PROVIDERS: ATTEND Podiatrist Foot & Ankle Surgery | DX: L97.519 Non-pressure chronic ulcer of other part of right foot with unspecified severity (principal); Z89.411 Acquired absence of right great toe | CPT/HCPCS: 97605 ==

== ENCOUNTER 2018-04-15 09:47 | Outpatient (CLI) | payer SELFPAY ==
--- NOTE | 2018-04-15 11:48 | PRG ---
DATE OF SERVICE: 04/15/2018 SUBJECTIVE: A 57-year-old male returns today status post right foot hallux amputation site. He has been getting wound VAC changes 3 times a week. He has had no problems over the last week. Denies na usea, vomiting, fevers or chills. OBJECTIVE: Ulceration to the right foot measuring 3.7 cm x 0.7 cm x 1.3 cm of depth at 100% granular tissues. There is minimal serosanguineous drainage. Slight maceration of the periwound area. No p eriwound erythema, edema or warmth. 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 PLAN: 1. Continue with wound VAC changes 3 times a week. 2. A full thickness debridement of subcutaneous tissue layers removing all nonviable tissue and biof ilm of the wound base down to a bleeding granular wound base. The patient tolerated the procedure we ll. 3. The patient will follow up with me in 1 week.
== END 2018-04-15 09:48 | disposition home or self-care (01) ==
LOC: WCC 09:47
PROVIDERS: ATTEND Podiatrist Foot & Ankle Surgery
DX: L97.519 Non-pressure chronic ulcer of other part of right foot with unspecified severity (principal); Z89.411 Acquired absence of right great toe
CPT/HCPCS: 11042

== ENCOUNTER 2018-04-18 09:45 | Outpatient (CLI) | payer SELFPAY ==
[2018-04-18] MEDS ORDERED: Sodium Chloride 0.9% 15 ML NEB ONE (15:45)
== END 2018-04-18 09:46 | disposition home or self-care (01) ==
LOC: WCC 09:45
PROVIDERS: ATTEND Podiatrist Foot & Ankle Surgery
DX: L97.519 Non-pressure chronic ulcer of other part of right foot with unspecified severity (principal); Z89.411 Acquired absence of right great toe
CPT/HCPCS: 36416; 97605; A4218

== ENCOUNTER 2018-04-20 09:40 | Outpatient (CLI) | payer SELFPAY ==
[2018-04-20] MEDS ORDERED: Sodium Chloride 0.9% 15 ML NEB ONE (16:00)
== END 2018-04-20 09:41 | disposition home or self-care (01) ==
LOC: WCC 09:40
PROVIDERS: ATTEND Podiatrist Foot & Ankle Surgery
DX: T81.89XD Other complications of procedures, not elsewhere classified, subsequent encounter (principal); Z89.411 Acquired absence of right great toe
CPT/HCPCS: 36416; 97605; A4218

== ENCOUNTER 2018-04-22 09:55 | Outpatient (CLI) | payer SELFPAY ==
--- NOTE | 2018-04-22 11:01 | PRG ---
DATE OF SERVICE: 04/22/2018 SUBJECTIVE: This is a 57-year-old male, who returns today status post right foot great toe amputatio n with continued wound to this area. Denies acute events since last visit. Denies nausea, vomiting, fevers or chills. PHYSICAL EXAMINATION: Ulceration to the right great toe amputation site measuring 2.6 cm x 1.0 cm wi th 1 cm depth, it is 100% granular tissue. No periwound erythema, edema or warmth. ASSESSMENT: 1. 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 2. Diabetes with peripheral neuropathy. 3. Status post right great toe amputation. PLAN: 1. Full thickness debridement of subcutaneous tissue layer removing all nonviable tissue and biofilm from the wound base with dermal curet. The patient tolerated the procedure well. 2. I am going to continue with 3 times a week VAC changes on followup with me in 1 week.
[2018-04-22] MEDS ORDERED: Sodium Chloride 0.9% 15 ML NEB ONE (20:00)
== END 2018-04-22 09:56 | disposition home or self-care (01) ==
LOC: WCC 09:55
PROVIDERS: ATTEND Podiatrist Foot & Ankle Surgery
DX: E11.621 Type 2 diabetes mellitus with foot ulcer (principal); L97.519 Non-pressure chronic ulcer of other part of right foot with unspecified severity; E11.42 Type 2 diabetes mellitus with diabetic polyneuropathy; Z89.411 Acquired absence of right great toe
CPT/HCPCS: 11042; A4218

== ENCOUNTER 2018-04-25 15:01 | Outpatient (CLI) | payer OTHER, SELFPAY | END 2018-04-25 15:02 | disposition home or self-care (01) | LOC: WCC 15:01 | PROVIDERS: ATTEND Podiatrist Foot & Ankle Surgery | DX: T81.89XD Other complications of procedures, not elsewhere classified, subsequent encounter (principal); Z89.411 Acquired absence of right great toe | CPT/HCPCS: 97605 ==

== ENCOUNTER 2018-04-27 09:44 | Outpatient (CLI) | payer OTHER ==
[2018-04-27] MEDS ORDERED: Sodium Chloride 0.9% 15 ML NEB ONE (14:30)
== END 2018-04-27 09:45 | disposition home or self-care (01) ==
LOC: WCC 09:44
PROVIDERS: ATTEND Podiatrist Foot & Ankle Surgery
DX: T81.89XD Other complications of procedures, not elsewhere classified, subsequent encounter (principal); Z89.411 Acquired absence of right great toe
CPT/HCPCS: 97605; A4218

== ENCOUNTER 2018-04-29 09:44 | Outpatient (CLI) | payer OTHER ==
[2018-04-29] MEDS ORDERED: Sodium Chloride 0.9% 15 ML NEB ONE (10:18)
--- NOTE | 2018-04-29 10:53 | PRG ---
DATE OF SERVICE: 04/29/2018 SUBJECTIVE: A 57-year-old male returns today for followup wound status post right great toe amputati on. We have been informed by I that we have to discontinue his wound VAC and return it. He has dugan d no problems with the VAC over this last week. PHYSICAL EXAMINATION: Ulcer to the right great toe amputation site measuring 2.5 cm x 0.6 cm x 0.2 c m, 100% percent granulation tissue, minimal serosanguineous drainage, no periwound erythema, edema or warmth. ASSESSMENT: Non-pressure chronic ulceration status post right great toe amputation. PLAN: 1. Going to switch him to a daily collagen dressing change with secondary gauze dressing. 2. The patient's wound was debrided full thickness removing all nonviable tissue and biofilm from th e subcutaneous tissue layer down to a bleeding granular wound base. The patient tolerated the proced ure well. 3. The patient will follow up with me in 3 weeks.
== END 2018-04-29 09:45 | disposition home or self-care (01) ==
LOC: WCC 09:44
PROVIDERS: ATTEND Podiatrist Foot & Ankle Surgery
DX: L97.519 Non-pressure chronic ulcer of other part of right foot with unspecified severity (principal); Z89.411 Acquired absence of right great toe
CPT/HCPCS: A4218

== ENCOUNTER 2018-05-20 10:07 | Outpatient (CLI) | payer OTHER ==
--- NOTE | 2018-05-20 10:45 | PRG ---
DATE OF SERVICE: 05/20/2018 SUBJECTIVE: This is a 57-year-old male returns today for followup right foot wound, status post righ t great toe amputation. He has been doing well over the last several weeks with dressing changes. N o acute events. Denies nausea, vomiting, fevers or chills. PHYSICAL EXAMINATION: Ulceration of the right great toe is basically a slit at this time, it measure s 0.6 cm in length, 0.2 cm and 0.1 cm, 100% granulation tissue. Mild periwound hyperkeratosis. No p eriwound erythema, edema or warmth. ASSESSMENT: 1. Non-pressure chronic ulceration right great toe, status post right great toe amputation. 2. Diabetes with peripheral neuropathy. PLAN: 1. Full thickness debridement of subcutaneous tissue layer removing all nonviable tissue and biofilm from the wound base with dermal curette down to bleeding granular wound base. The patient tolerated the procedure well. 2. Going to continue with Promogran dressing changes on a daily basis. 3. The patient will follow up in 2 weeks.
== END 2018-05-20 10:08 | disposition home or self-care (01) ==
LOC: WCC 10:07
PROVIDERS: ATTEND Podiatrist Foot & Ankle Surgery
DX: E11.621 Type 2 diabetes mellitus with foot ulcer (principal); L97.519 Non-pressure chronic ulcer of other part of right foot with unspecified severity; E11.42 Type 2 diabetes mellitus with diabetic polyneuropathy; Z89.411 Acquired absence of right great toe
CPT/HCPCS: 36416

== ENCOUNTER 2018-10-09 20:23 | Emergency (ER) | payer OTHER ==
[2018-10-09] MEDS ORDERED: Bacitracin Zinc 1 Packet ONE (20:56)
== END 2018-10-09 21:10 | disposition home or self-care (01) ==
LOC: ERS 20:23
DX: E11.621 Type 2 diabetes mellitus with foot ulcer (principal); L97.519 Non-pressure chronic ulcer of other part of right foot with unspecified severity; Z79.84 Long term (current) use of oral hypoglycemic drugs; Z79.899 Other long term (current) drug therapy
CPT/HCPCS: 99283

== ENCOUNTER 2022-02-20 20:48 | Emergency (ER) | payer OTHER, SELFPAY ==
[2022-02-20 21:29] LABS: #Eosinphils 0.3 thou/uL (0.0-0.7); #Lymphocytes 1.7 thou/uL (1.20-3.40); #Neutrophils 7.1 thou/uL (1.40-6.50); %Basophils 0.1 % (0.0-1.0); %Eosinophils 2.7 % (0.0-10.0); %Lymphocytes 16.8 % (21.0-51.0); %Monocytes 9.9 % (0.0-10.0); %Neutrophils 70.5 % (42.0-75.0); Mean Corpuscular HGB CONC 34.2 g/dL (32.0-36.0); Mean Corpuscular Hemoglobin 32.4 pg (27.0-31.0); Mean Corpuscular Volume 94.7 fL (78.0-98.0); Mean Platelet Volume 7.6 fL (7.4-10.4); Platelet Count 236 thou/uL (130-400); RBC Distribution Width 10.9 % (11.5-14.5); Red Blood Cell (RBC) Count 4.03 mill/uL (4.70-6.10)
[2022-02-20 21:54] LABS: ALT (SGPT) 15 U/L (8-55); AST (SGOT) 12 U/L (5-34); Albumin 4.1 g/dL (3.4-4.8); Alkaline Phosphatase 84 U/L (40-110); Anion Gap 15 mmol/L (10-20); BUN (Urea Nitrogen) 33 mg/dL (8.4-25.7); Bilirubin, Total 0.6 mg/dL (0.2-1.2); Calc. Creatinine Clearance 0 mL/min (70-130); Calcium 9.3 mg/dL (7.8-10.44); Carbon Dioxide 23 mmol/L (23-31); Chloride 102 mmol/L (98-107); Estimated GFR 39; Glucose 181 mg/dL (80-115); Potassium 4.5 mmol/L (3.5-5.1); Protein, Total 7.1 g/dL (5.8-8.1); Sodium 135 mmol/L (136-145)
== END 2022-02-20 22:30 | disposition home or self-care (01) ==
LOC: ERS 20:48
DX: L03.115 Cellulitis of right lower limb (principal); S91.331D Puncture wound without foreign body, right foot, subsequent encounter; E11.9 Type 2 diabetes mellitus without complications; I10 Essential (primary) hypertension; Z79.84 Long term (current) use of oral hypoglycemic drugs; Z79.899 Other long term (current) drug therapy
CPT/HCPCS: 36415; 80053; 85025; 99283

== ENCOUNTER 2022-12-14 07:50 | Outpatient (CLI) | payer OTHER | END 2022-12-14 07:51 | disposition home or self-care (01) | LOC: ULT 07:50 | PROVIDERS: ATTEND Internal Medicine Nephrology | DX: N18.30 Chronic kidney disease, stage 3 unspecified (principal) | CPT/HCPCS: 76770 ==